=== PATIENT | male | born 1955 | race African-American/Black ===

== ENCOUNTER 2021-07-31 00:18 | Inpatient (IN) | payer MEDICARE, OTHER ==
[~2021-07-31] VITALS: Ht 175.3 cm; Wt 81.6 kg
[2021-07-31] MEDS ORDERED: ALBUTEROL SULFATE 2.5 MG/3 ML NEBU ONE (00:35)
[2021-07-31] MEDS ORDERED: IPRATROPIUM BROMIDE 0.5 MG/2.5 ML NEBU ONE (00:35)
[2021-07-31 00:41] LABS: HEMATOCRIT 43.6 % (36.7-47.1); MEAN CORPUSCULAR HEMOGLOBIN 30.1 uug (23.8-33.4); MEAN CORPUSCULAR VOLUME 88.5 fL (73.0-96.2); PLATELET COUNT (AUTO) 350 K/uL (152-348)
[2021-07-31 00:45] LABS: MAGNESIUM 1.6 mg/dL (1.8-2.4)
[2021-07-31] MEDS ORDERED: IPRATROPIUM BROMIDE 0.5 MG/2.5 ML NEBU NEB ONE (00:45)
[2021-07-31] MEDS ORDERED: ALBUTEROL SULFATE 2.5 MG/3 ML NEBU NEB ONE (00:45)
[2021-07-31] MEDS ORDERED: methylPREDNISolone SOD SUCC 125 MG/2 ML VIAL IV ONE (00:45)
[2021-07-31 00:46] LABS: CARBON DIOXIDE 33 mmol/L (21-32); CHLORIDE 100 mmol/L (98-107); CREATININE 1.4 mg/dL (0.6-1.3); GLUCOSE 112 mg/dL (74-106); UREA NITROGEN, BLOOD 15 mg/dL (7-18)
[2021-07-31] MEDS ORDERED: methylPREDNISolone SOD SUCC 125 MG/2 ML VIAL ONE (00:48)
[2021-07-31 00:59] LABS: ALANINE AMINOTRANSFERASE 29 U/L (16-63); ALKALINE PHOSPHATASE 73 U/L (50-136); ASPARTATE AMINOTRANSFERASE 17 U/L (15-37); BILIRUBIN,DIRECT 0.1 mg/dL (0.0-0.2); BILIRUBIN,TOTAL 0.3 mg/dL (0.2-1.0); TOTAL PROTEIN, SERUM 8.5 g/dL (6.4-8.2)
[2021-07-31] MEDS ORDERED: HYDROCODONE/APAP 5-325MG TABLET PO PRN (01:15)
[2021-07-31] MEDS ORDERED: ONDANSETRON 4 MG/2 ML VIAL IV PRN (01:15)
[2021-07-31] MEDS ORDERED: MAGNESIUM HYDROXIDE 30 ML LIQUID UDC PO PRN (01:15)
[2021-07-31] MEDS ORDERED: ACETAMINOPHEN 325 MG TABLET PO PRN (01:15)
[2021-07-31] MEDS ORDERED: REMEDY ESSENTIAL ZINC PASTE 113 GM TP PRN (01:15)
[2021-07-31 01:17] LABS: ETHANOL < 3 MG/DL (0-0)
[2021-07-31] MEDS: MAGNESIUM SULFATE/D5W 100 ML IV SCH ×2 (01:17→02:19)
[2021-07-31] MEDS ORDERED: MAGNESIUM SULFATE/D5W 200 ML ONE (01:21)
[2021-07-31] MEDS ORDERED: FLUT1BLS6 IH (01:23)
[2021-07-31] MEDS ORDERED: ASPI81TA31 PO (01:23)
[2021-07-31] MEDS ORDERED: OMEP20TA5 PO (01:23)
[2021-07-31] MEDS ORDERED: ATOR20TA PO (01:23)
[2021-07-31] MEDS ORDERED: ALBU18HF2 IH (01:23)
[2021-07-31] MEDS ORDERED: AMLO-212 PO (01:23)
[2021-07-31] MEDS ORDERED: BENA40TA8 PO (01:23)
[2021-07-31] MEDS ORDERED: METF-442 PO (01:23)
[2021-07-31 01:43] LABS: ABG BASE EXCESS 0.1 mmol/L; ABG HCO3 26.8 mmol/L; ABG PCO2 51.1 mmHg (35.0-45.0); ABG PH 7.337 (7.350-7.450); ABG PO2 191.1 mmHg (75.0-100.0); ABG SITE RIGHT RADIAL; ABG TOTAL HEMOGLOBIN 14.9 G/dL (13.5-18.0); COHb 3.2 % (0.5-1.5); MetHb 0.3 % (0.0-1.5); O2Hb 95.8 % (94.0-97.0); VENT MODE BIPAP
[2021-07-31] MEDS ORDERED: IV 1/2NS 1000 ML 1,000 ML IV SCH (01:45)
[2021-07-31] MEDS ORDERED: DEXTROSE 50% 50 ML DISP.SYRIN IV PRN (01:45)
[2021-07-31] MEDS ORDERED: INSULIN REGULAR, HUMAN 300 UNITS/3 ML VIAL SQ PRN (01:45)
[2021-07-31] MEDS ORDERED: INSULIN REGULAR, HUMAN 300 UNIT/3 ML VIAL SQ PRN (01:45)
[2021-07-31] MEDS ORDERED: IOHEXOL 350 100 ML INFUS..BTL ONE (03:09)
[2021-07-31] MEDS ORDERED: SWABABLE VALVE TRANSFER SET EA MC ONE (03:09)
[2021-07-31] MEDS ORDERED: IV NORMAL SALINE 250 ML IV ONE (03:09)
[2021-07-31] MEDS ORDERED: IPRATROPIUM BROMIDE 0.5 MG/2.5 ML NEBU NEB SCH ×2 (04:00→07:35)
[2021-07-31] MEDS ORDERED: ALBUTEROL SULFATE 2.5 MG/3 ML NEBU NEB SCH ×2 (04:00→07:35)
[2021-07-31] MEDS ORDERED: methylPREDNISolone SOD SUCC 40 MG/ML VIAL IV SCH (06:00)
[2021-07-31] MEDS ORDERED: methylPREDNISolone SOD SUCC 40 MG/ML VIAL ONE ×2 (06:15)
[2021-07-31] MEDS ORDERED: PANTOPRAZOLE SODIUM 40 MG TABLET.DR PO SCH (07:00)
[2021-07-31] MEDS ORDERED: PANTOPRAZOLE SODIUM 40 MG TABLET.DR PO ONE (07:10)
[2021-07-31] MEDS ORDERED: BLOOD SUGAR DIAGNOSTIC 1 EACH STRIP VI SCH (07:30)
[2021-07-31 07:41] VITALS: BP 142/91
[2021-07-31] MEDS ORDERED: ENOXAPARIN SODIUM 40 MG/0.4 ML DISP.SYRIN SQ SCH (09:00)
[2021-07-31] MEDS ORDERED: AMLODIPINE 5 MG TABLET PO SCH (09:00)
[2021-07-31] MEDS ORDERED: ASPIRIN 81 MG TAB.CHEW PO SCH (09:00)
[2021-07-31] MEDS ORDERED: methylPREDNISolone SOD SUCC 125 MG/2 ML VIAL IV SCH (14:00)
[2021-07-31] MEDS ORDERED: ATORVASTATIN 20 MG TABLET PO SCH (21:00)
== END 2021-07-31 07:36 | disposition left against medical advice (07) | DRG 190 ==
LOC: ER 00:28 → TRANSITION 01:30
PROVIDERS: ADMIT Student in an Organized Health Care Education/Training Program; ATTEND Student in an Organized Health Care Education/Training Program
PROC: 5A09357 Assistance with Respiratory Ventilation, Less than 24 Consecutive Hours, Continuous Positive Airway Pressure (ICD-10-PCS; principal; 2021-07-31)
DX: J44.1 Chronic obstructive pulmonary disease with (acute) exacerbation (principal); J96.01 Acute respiratory failure with hypoxia; N17.0 Acute kidney failure with tubular necrosis; J45.902 Unspecified asthma with status asthmaticus; E83.42 Hypomagnesemia; I10 Essential (primary) hypertension; F17.210 Nicotine dependence, cigarettes, uncomplicated; E78.5 Hyperlipidemia, unspecified; E11.9 Type 2 diabetes mellitus without complications; Z79.84 Long term (current) use of oral hypoglycemic drugs; Z20.822 Contact with and (suspected) exposure to COVID-19; Z53.29 Procedure and treatment not carried out because of patient's decision for other reasons; Z79.82 Long term (current) use of aspirin; Z79.899 Other long term (current) drug therapy
CPT/HCPCS: 36415; 36600; 71045; 71275; 83735; 84484; 85025; 87400; 93005; G0378; G0480; J1815; J2920; J2930; J3475; J3490; J3590; J7050; Q9967

== ENCOUNTER 2022-02-04 00:57 | Inpatient (IN) | payer OTHER ==
[~2022-02-04] VITALS: Ht 177.8 cm; Wt 81.6 kg
[~2022-02-04 00:57] MED LIST: ALBU18HF2 IH; AMLO-212 PO; ASPI81TA31 PO; ATOR20TA PO; BENA40TA8 PO; FLUT1BLS6 IH; METF-442 PO; OMEP20TA5 PO
[2022-02-04] MEDS ORDERED: TERBUTALINE SULFATE 1 MG/1 ML VIAL SQ ONE (01:00)
[2022-02-04] MEDS ORDERED: MAGNESIUM SULFATE 2 GM in IV DEXTROSE 5% 100 ML IV ONE (01:00)
[2022-02-04] MEDS ORDERED: IV NORMAL SALINE 500 ML BAG IV ONE (01:00)
[2022-02-04] MEDS ORDERED: ALBUTEROL SULFATE 2.5 MG/3 ML NEBU NEB ONE (01:00)
[2022-02-04] MEDS ORDERED: IPRATROPIUM BROMIDE 0.5 MG/2.5 ML NEBU NEB ONE (01:00)
[2022-02-04] MEDS ORDERED: methylPREDNISolone SOD SUCC 125 MG/2 ML VIAL IV ONE (01:00)
[2022-02-04] MEDS ORDERED: methylPREDNISolone SOD SUCC 125 MG/2 ML VIAL ONE (01:08)
[2022-02-04] MEDS ORDERED: MAGNESIUM SULFATE/D5W 200 ML ONE (01:09)
[2022-02-04] MEDS ORDERED: TERBUTALINE SULFATE 1 MG/1 ML VIAL ONE (01:09)
[2022-02-04 01:14] LABS: HEMATOCRIT 40.1 % (36.7-47.1); MEAN CORPUSCULAR HEMOGLOBIN 29.2 uug (23.8-33.4); PLATELET COUNT (AUTO) 379 K/uL (152-348)
[2022-02-04] MEDS ORDERED: ALBUTEROL SULFATE 2.5 MG/3 ML NEBU ONE (01:16)
[2022-02-04] MEDS ORDERED: IPRATROPIUM BROMIDE 0.5 MG/2.5 ML NEBU ONE (01:17)
[2022-02-04 01:20] LABS: CARBON DIOXIDE 32 mmol/L (21-32); CHLORIDE 102 mmol/L (98-107); CREATININE 1.4 mg/dL (0.6-1.3); GLUCOSE 137 mg/dL (74-106); POTASSIUM 4.7 mmol/L (3.5-5.1); UREA NITROGEN, BLOOD 19 mg/dL (7-18)
[2022-02-04 01:33] LABS: ALANINE AMINOTRANSFERASE 33 U/L (16-63); ALKALINE PHOSPHATASE 70 U/L (50-136); ASPARTATE AMINOTRANSFERASE 20 U/L (15-37); BILIRUBIN,DIRECT 0.1 mg/dL (0.0-0.2); BILIRUBIN,TOTAL 0.3 mg/dL (0.2-1.0); TOTAL PROTEIN, SERUM 8.2 g/dL (6.4-8.2)
[2022-02-04] MEDS ORDERED: OMEP20TA5 PO (02:17)
[2022-02-04] MEDS ORDERED: PRED20TA PO (02:17)
[2022-02-04] MEDS ORDERED: MONT10TA33 PO (02:17)
[2022-02-04] MEDS ORDERED: HYDR12.55 PO (02:17)
[2022-02-04] MEDS ORDERED: SITA100T PO (02:17)
--- NOTE | 2022-02-04 03:05 | NUR ---
call to [facility] panel for admission. joy rosas.
--- NOTE | 2022-02-04 03:10 | NUR ---
Patient has been accepted by Ang Edwards NP
--- NOTE | 2022-02-04 03:11 | NUR ---
attempt made to inform SO that patient will be admitted. Patient provided a non working phone number
--- NOTE | 2022-02-04 03:12 | NUR ---
Patient gave a number - also not working
[2022-02-04] MEDS ORDERED: ACETAMINOPHEN 325 MG TABLET PO PRN (03:15)
[2022-02-04] MEDS ORDERED: ONDANSETRON 4 MG/2 ML VIAL IV PRN (03:15)
[2022-02-04] MEDS ORDERED: REMEDY ESSENTIAL ZINC PASTE 113 GM TP PRN (03:15)
[2022-02-04] MEDS ORDERED: MAGNESIUM HYDROXIDE 30 ML LIQUID UDC PO PRN (03:15)
[2022-02-04] MEDS ORDERED: DEXTROSE 50% 50 ML DISP.SYRIN IV PRN (03:15)
[2022-02-04] MEDS ORDERED: MONTELUKAST SODIUM 10 MG TABLET PO PRN (03:30)
--- NOTE | 2022-02-04 03:34 | NUR ---
report given to Marcia MOULTON
--- NOTE | 2022-02-04 03:36 | NUR ---
patient will be transfered to [facility] room 310 under Ang Edwards NP
[2022-02-04 04:15] VITALS: BP 110/69
--- NOTE | 2022-02-04 04:59 | NUR ---
Pt. admitted to [facility] room 310 , under care of Ang Edwards NP Belongs List completed Gilda RN aware of patient's arrival
--- NOTE | 2022-02-04 05:00 | NUR ---
Admitted this 66 y/o male from ER to [facility] room 310, on BIPAP, sinus tachy. In no acute distress. IV access on RAC intact and patent. Alert and oriented x3. Routine admission care done, oriented to room, call light, TV and BR. Plan of care initiated. Needs assessed and attended to. Call light placed within easy reach.
[2022-02-04] MEDS ORDERED: PANTOPRAZOLE SODIUM 40 MG TABLET.DR PO SCH (07:00)
[2022-02-04] MEDS: BLOOD SUGAR DIAGNOSTIC 1 EACH STRIP VI SCH ×4 (07:07→21:00)
[2022-02-04 07:32] VITALS: BP 122/73
[2022-02-04] MEDS: ALBUTEROL SULFATE 2.5 MG/3 ML NEBU NEB SCH ×4 (07:41→20:20)
[2022-02-04] MEDS: IPRATROPIUM BROMIDE 0.5 MG/2.5 ML NEBU NEB SCH ×4 (07:41→20:20)
--- NOTE | 2022-02-04 07:41 | NUR ---
First dose of scheduled inhaled treatment given. Pt received stable on Bipap, Fio2 titrated to 30%. Spo2 and respirations wnl. Cont. pox at bedside. No signs or symptoms of respiratory distress noted. Will continue to monitor.
--- NOTE | 2022-02-04 08:00 | NUR ---
resting in bed, on Bipap rate of 18 fio2 of 30%, titrated by RT sat at 100%, tele SR 98 no distress noted, explained plan of care- verbalized understanding, call light within reach
--- NOTE | 2022-02-04 08:27 | NUR ---
PT TAKEN OFF BIPAP. PT IS AWAKE, ALERT AND RESPONSIVE. PT PLACED ON 2 LPM N/C, SPO2 AND RESPIRATIONS WNL. BIPAP ON STANDBY. PT EATING BREAKFAST COMFORTABLY. NO SIGNS OR SYMPTOMS OF RESP. DISTRESS NOTED. CONT. POX AT BEDSIDE. WILL CONTINUE TO MONITOR.
--- NOTE | 2022-02-04 08:30 | NUR ---
awake, ready for breakfast, placed on 2l/nc per RT- sat at 99%, on continuous pulse ox, seen by Dr Eduardo with orders
[2022-02-04] MEDS: INSULIN REGULAR, HUMAN 300 UNIT/3 ML VIAL SQ PRN ×2 (08:39→17:27)
[2022-02-04] MEDS: METFORMIN HCL 500 MG TABLET PO SCH ×2 (08:41→17:25)
[2022-02-04] MEDS: HEPARIN SODIUM,PORCINE 5,000 UNITS/ML VIAL SQ SCH ×2 (08:42→21:00)
[2022-02-04] MEDS: methylPREDNISolone SOD SUCC 40 MG/ML VIAL IV SCH ×2 (08:48→16:11)
[2022-02-04] MEDS ORDERED: HYDROCHLOROTHIAZIDE 12.5 MG CAPSULE PO SCH (09:00)
[2022-02-04] MEDS ORDERED: IPRATROPIUM BROMIDE 0.5 MG/2.5 ML NEBU NEB PRN (09:00)
[2022-02-04] MEDS ORDERED: Medication Not On Formulary EA (Omeprazole 20 MG) PO SCH (09:00)
[2022-02-04] MEDS ORDERED: AMLODIPINE 5 MG TABLET PO SCH (09:00)
[2022-02-04] MEDS ORDERED: ALBUTEROL SULFATE 2.5 MG/3 ML NEBU NEB PRN (09:00)
[2022-02-04] MEDS ORDERED: BENAZEPRIL HCL 20 MG TABLET PO SCH (09:00)
--- NOTE | 2022-02-04 10:30 | NUR ---
downgraded to tele per Dr Carter, remains on 2l/nc sat at 99%
--- NOTE | 2022-02-04 11:29 | NUR ---
titrated 02 to 1l/nc per RT- sat at 99%
[2022-02-04 11:31] VITALS: BP 113/49
[2022-02-04 15:38] VITALS: BP 105/60
[2022-02-04] MEDS ORDERED: NICOTINE 21 MG/24HR PATCH TD SCH (16:00)
--- NOTE | 2022-02-04 16:41 | NUR ---
female visitor at bedside, on R/A sat at 94%, no distress noted
--- NOTE | 2022-02-04 18:15 | NUR ---
no distress noted, remains on room air with sat 94%, all needs attended and met, call light within reach
[2022-02-04 18:27] LABS: ABG BASE EXCESS -3.6 mmol/L; ABG HCO3 22.7 mmol/L; ABG PCO2 45.9 mmHg (35.0-45.0); ABG PH 7.312 (7.350-7.450); ABG PO2 491.7 mmHg (75.0-100.0); ABG SITE RIGHT RADIAL; ABG TOTAL HEMOGLOBIN 12.7 G/dL (13.5-18.0); COHb 0.6 % (0.5-1.5); MetHb 0.3 % (0.0-1.5); O2Hb 98.6 % (94.0-97.0); VENT MODE BIPAP
--- NOTE | 2022-02-04 20:55 | NUR ---
SAW PT HE STILL LEFT AMA NO SIGNS OF RESPIRATORY DISTRESS NOTED. PT SIGNED.AMA FORM.
[2022-02-04] MEDS ORDERED: ATORVASTATIN 20 MG TABLET PO SCH (21:00)
--- NOTE | 2022-02-04 21:07 | NUR ---
PT ESCORTED PT DOWN TO THE LOBBY PICKED UP UBER NO SIGNS OF DISTRESS NOTED WILL CONTINUE TO MONITOR.
== END 2022-02-04 21:00 | disposition left against medical advice (07) | DRG 190 ==
LOC: ER 01:00 → TELE-TD3 03:19 → TELE3 11:00
PROVIDERS: ADMIT Internal Medicine; ATTEND Internal Medicine
PROC: 5A09457 Assistance with Respiratory Ventilation, 24-96 Consecutive Hours, Continuous Positive Airway Pressure (ICD-10-PCS; principal; 2022-02-04)
DX: J44.1 Chronic obstructive pulmonary disease with (acute) exacerbation (principal); J96.02 Acute respiratory failure with hypercapnia; N17.0 Acute kidney failure with tubular necrosis; J45.901 Unspecified asthma with (acute) exacerbation; Z20.822 Contact with and (suspected) exposure to COVID-19; I12.9 Hypertensive chronic kidney disease with stage 1 through stage 4 chronic kidney disease, or unspecified chronic kidney disease; E11.22 Type 2 diabetes mellitus with diabetic chronic kidney disease; E78.5 Hyperlipidemia, unspecified; F17.210 Nicotine dependence, cigarettes, uncomplicated; Z79.84 Long term (current) use of oral hypoglycemic drugs; N18.2 Chronic kidney disease, stage 2 (mild)
CPT/HCPCS: 36415; 36600; 71045; 84484; 85025; 93005; 94640; 94660; 94664; 94760; 99082-TC; A4663; G0378; J1644; J1815; J2920; J2930; J3105; J3475; J3590; J7040

== ENCOUNTER 2022-09-07 20:43 | Inpatient (IN) | payer OTHER ==
[~2022-09-07] VITALS: Ht 185.4 cm; Wt 78.9 kg
[~2022-09-07 20:43] MED LIST changes: -ALBU18HF2 IH; -ASPI81TA31 PO; -FLUT1BLS6 IH; +HYDR12.55 PO; +MONT10TA33 PO; +PRED20TA PO; +SITA100T PO
[2022-09-07] MEDS ORDERED: ALBUTEROL SULFATE 2.5 MG/3 ML NEBU NEB ONE (21:00)
[2022-09-07] MEDS ORDERED: IPRATROPIUM BROMIDE 0.5 MG/2.5 ML NEBU NEB ONE (21:00)
[2022-09-07] MEDS ORDERED: IPRATROPIUM BROMIDE 0.5 MG/2.5 ML NEBU ONE (21:01)
[2022-09-07] MEDS ORDERED: ALBUTEROL SULFATE 2.5 MG/3 ML NEBU ONE (21:01)
[2022-09-07 21:18] LABS: HEMATOCRIT 27.8 % (36.7-47.1); MEAN CORPUSCULAR HEMOGLOBIN 28.1 uug (23.8-33.4); MEAN CORPUSCULAR VOLUME 88.6 fL (73.0-96.2); PLATELET COUNT (AUTO) 352 K/uL (152-348)
[2022-09-07 21:28] LABS: CARBON DIOXIDE 31 mmol/L (21-32); CHLORIDE 102 mmol/L (98-107); CREATININE 1.6 mg/dL (0.6-1.3); GLUCOSE 135 mg/dL (74-106); POTASSIUM 4.4 mmol/L (3.5-5.1); UREA NITROGEN, BLOOD 10 mg/dL (7-18)
[2022-09-07] MEDS ORDERED: CEFTRIAXONE 1 G in IV DEXTROSE 5% 50 ML IV ONE (21:45)
[2022-09-07] MEDS ORDERED: CEFTRIAXONE /D5W 50ML IVPB **ER PYXIS IV ONE (22:02)
[2022-09-07] MEDS ORDERED: AZITHROMYCIN 500MG/ D5W 250ML IVPB **ER PYXIS ONLY IV ONE (22:02)
[2022-09-07] MEDS: AZITHROMYCIN IV 500 MG in IV DEXTROSE 5% 250 ML IV ONE ×2 (22:19→22:32)
[2022-09-07] MEDS ORDERED: QUET50TA PO (22:44)
[2022-09-07] MEDS ORDERED: CALC200T29 PO (22:44)
[2022-09-07] MEDS ORDERED: AMIO200T5 PO (22:44)
[2022-09-07] MEDS ORDERED: APIX2.5T PO (22:44)
[2022-09-07] MEDS ORDERED: METO50TA16 PO (22:44)
[2022-09-07] MEDS ORDERED: FLUT1BLS6 IH (22:44)
[2022-09-07] MEDS ORDERED: HYDR-894 PO (22:44)
[2022-09-07] MEDS ORDERED: TIOT18CA3 IH (22:44)
[2022-09-07] MEDS ORDERED: ASPI81TA31 PO (22:44)
[2022-09-07] MEDS ORDERED: methylPREDNISolone SOD SUCC 125 MG/2 ML VIAL IV ONE (23:08)
[2022-09-07] MEDS ORDERED: methylPREDNISolone SOD SUCC 125 MG/2 ML VIAL ONE (23:12)
[2022-09-07 23:40] LABS: BILIRUBIN,DIRECT 0.1 mg/dL (0.0-0.2); BILIRUBIN,TOTAL 0.1 mg/dL (0.2-1.0)
[2022-09-07] MEDS ORDERED: ONDANSETRON 4 MG/2 ML VIAL IV PRN (23:45)
[2022-09-07] MEDS ORDERED: IPRATROPIUM BROMIDE 0.5 MG/2.5 ML NEBU INH SCH (23:45)
[2022-09-07] MEDS ORDERED: ACETAMINOPHEN 650 MG SUPP.RECT RC PRN (23:45)
[2022-09-08] MEDS ORDERED: IPRATROPIUM BROMIDE 0.5 MG/2.5 ML NEBU INH SCH (00:28)
[2022-09-08 00:42] VITALS: BP 126/78
[2022-09-08] MEDS: ALBUTEROL SULFATE 8 GM HFA.AER.AD IH SCH ×5 (03:30→15:30)
[2022-09-08 04:55] VITALS: BP 110/63
[2022-09-08 07:07] LABS: HEMATOCRIT 27.7 % (36.7-47.1); MEAN CORPUSCULAR HEMOGLOBIN 27.9 uug (23.8-33.4); MEAN CORPUSCULAR VOLUME 88.7 fL (73.0-96.2); PLATELET COUNT (AUTO) 335 K/uL (152-348)
[2022-09-08 07:57] LABS: THYROID STIMULATING HORMONE 0.205 mIU/mL (0.358-3.740)
[2022-09-08 08:08] LABS: CREATININE 1.6 mg/dL (0.6-1.3); POTASSIUM 5.1 mmol/L (3.5-5.1)
[2022-09-08 08:14] LABS: BILIRUBIN,TOTAL 0.1 mg/dL (0.2-1.0); MAGNESIUM 1.9 mg/dL (1.8-2.4); PHOSPHOROUS 3.7 mg/dL (2.5-4.9); TOTAL PROTEIN, SERUM 7.4 g/dL (6.4-8.2)
[2022-09-08] MEDS: IPRATROPIUM BROMIDE 12.9 GM INHALER INH SCH ×3 (08:56→15:30)
[2022-09-08] MEDS ORDERED: DEXAMETHASONE SOD PHOSPHATE 4 MG INJ IV SCH (09:00)
[2022-09-08] MEDS ORDERED: HEPARIN SODIUM,PORCINE 5,000 UNITS/ML VIAL SQ SCH (09:00)
[2022-09-08] MEDS ORDERED: HEPARIN SODIUM,PORCINE 5,000 UNITS/ML VIAL IV SCH (09:00)
[2022-09-08 10:49] LABS: ABG BASE EXCESS 4.2 mmol/L; ABG HCO3 29.2 mmol/L; ABG PCO2 45.5 mmHg (35.0-45.0); ABG PH 7.425 (7.350-7.450); ABG SITE RIGHT BRACHIAL; ABG TOTAL HEMOGLOBIN 10.8 G/dL (13.5-18.0); COHb 0.5 % (0.5-1.5); MetHb 0.3 % (0.0-1.5); O2Hb 92.9 % (94.0-97.0); VENT MODE Nasal Cannula
[2022-09-08 11:39] VITALS: BP 111/75
[2022-09-08] MEDS ORDERED: AMIODARONE HCL 200 MG TABLET PO SCH (12:00)
[2022-09-08] MEDS ORDERED: CALCIUM CARBONATE 500 MG TAB.CHEW PO PRN (12:00)
[2022-09-08] MEDS ORDERED: MONTELUKAST SODIUM 10 MG TABLET PO PRN (12:00)
[2022-09-08 13:43] VITALS: BP 111/75
[2022-09-08] MEDS ORDERED: hydrALAZINE HCL 25 MG TABLET PO SCH (14:00)
[2022-09-08] MEDS ORDERED: BLOOD SUGAR DIAGNOSTIC 1 EACH STRIP VI SCH (16:30)
[2022-09-08] MEDS ORDERED: APIXABAN 2.5 MG TABLET PO SCH (21:00)
[2022-09-08] MEDS ORDERED: QUETIAPINE FUMARATE 25 MG TABLET PO SCH (21:00)
[2022-09-08] MEDS ORDERED: DOXYCYCLINE HYCLATE IV 100 MG in IV DEXTROSE 5% 100 ML IV SCH (21:00)
[2022-09-08] MEDS ORDERED: METOPROLOL TARTRATE 50 MG TABLET PO SCH (21:00)
[2022-09-08] MEDS ORDERED: ATORVASTATIN 20 MG TABLET PO SCH (21:00)
[2022-09-08] MEDS ORDERED: CEFTRIAXONE 1 G in IV DEXTROSE 5% 50 ML IV SCH (22:00)
[2022-09-08] MEDS ORDERED: AZITHROMYCIN IV 500 MG in IV DEXTROSE 5% 250 ML IV SCH (23:00)
[2022-09-09] MEDS ORDERED: DEXAMETHASONE SOD PHOSPHATE 4 MG INJ IV SCH (09:00)
[2022-09-09] MEDS ORDERED: FLUTICASONE/VILANTEROL 1 EACH BLST.W.DEV INH SCH (09:00)
[2022-09-09] MEDS ORDERED: ASPIRIN 81 MG TAB.CHEW PO SCH (09:00)
== END 2022-09-08 16:50 | disposition left against medical advice (07) | DRG 177 ==
LOC: ER 20:44 → TELE3 22:28
PROVIDERS: ADMIT Registered Nurse; ATTEND Nurse Practitioner Acute Care
PROC: 5A09357 Assistance with Respiratory Ventilation, Less than 24 Consecutive Hours, Continuous Positive Airway Pressure (ICD-10-PCS; principal; 2022-09-07)
DX: U07.1 COVID-19 (principal); J12.82 Pneumonia due to coronavirus disease 2019; N18.6 End stage renal disease; J96.01 Acute respiratory failure with hypoxia; D68.59 Other primary thrombophilia; I13.2 Hypertensive heart and chronic kidney disease with heart failure and with stage 5 chronic kidney disease, or end stage renal disease; J44.0 Chronic obstructive pulmonary disease with (acute) lower respiratory infection; J44.1 Chronic obstructive pulmonary disease with (acute) exacerbation; I48.0 Paroxysmal atrial fibrillation; E11.22 Type 2 diabetes mellitus with diabetic chronic kidney disease; E05.90 Thyrotoxicosis, unspecified without thyrotoxic crisis or storm; D63.8 Anemia in other chronic diseases classified elsewhere; E88.09 Other disorders of plasma-protein metabolism, not elsewhere classified; Z53.29 Procedure and treatment not carried out because of patient's decision for other reasons; Z99.2 Dependence on renal dialysis; I50.9 Heart failure, unspecified; Z79.84 Long term (current) use of oral hypoglycemic drugs; Z79.82 Long term (current) use of aspirin; Z79.01 Long term (current) use of anticoagulants; Z79.899 Other long term (current) drug therapy; Z82.49 Family history of ischemic heart disease and other diseases of the circulatory system; Z83.3 Family history of diabetes mellitus; Z87.01 Personal history of pneumonia (recurrent); F17.211 Nicotine dependence, cigarettes, in remission
CPT/HCPCS: 36415; 36600; 71045; 82803; 83605; 83615; 83735; 84100; 84443; 84484; 85025; 86140; 87040; 93005; 94640; 94660; A4663; G0378; J0456; J0696; J1100; J1644; J2930; J3490; J3535; J3590; J7050